=== PATIENT | female | born 1985 | race Asian ===

== ENCOUNTER 2016-10-22 05:44 | Day surgery (SDC) | payer OTHER ==
[2016-10-22] MEDS ORDERED: LIDOCAINE 1% 5 ML SDV ONE (06:19)
[2016-10-22] MEDS ORDERED: LIDOCAINE 1% 5 ML SDV ID PRN (06:47)
[2016-10-22] MEDS ORDERED: LR 1,000 ML IV ONE ×2 (06:47→07:00)
[2016-10-22] MEDS ORDERED: ceFAZolin 2 GM/DEXTROSE 100 ML IV ONE (07:00)
[2016-10-22] MEDS ORDERED: MIDAZOLAM 2 MG/2 ML VIAL ONE (07:12)
[2016-10-22] MEDS ORDERED: PROPOFOL 200 MG/20 ML VIAL ONE ×2 (07:16)
[2016-10-22] MEDS ORDERED: fentaNYL 250 MCG/5 ML INJ ONE (07:16)
[2016-10-22] MEDS ORDERED: LIDOCAINE 2% 5 ML SDV ONE (07:18)
[2016-10-22] MEDS ORDERED: SKIN ADHESIVE (DERMABOND) 1 EACH TP ONE (07:19)
[2016-10-22] MEDS ORDERED: BUPIVACAINE/EPI 0.5% 30 ML SDV ONE (07:19)
[2016-10-22] MEDS ORDERED: VASOPRESSIN 20 UNIT/ML VIAL ONE (07:20)
[2016-10-22] MEDS ORDERED: ROCURONIUM 50 MG/5 ML VIAL ONE (07:20)
[2016-10-22] MEDS ORDERED: LIDOCAINE HCL 160 MG/4 ML LTA KIT TP ONE (07:22)
[2016-10-22] MEDS ORDERED: PHENYLEPHRINE HCL 100 MCG/ML SYR ONE (07:51)
[2016-10-22] MEDS ORDERED: DEXAMETHASONE 4 MG/ML VIAL ONE ×2 (09:25)
[2016-10-22] MEDS ORDERED: ONDANSETRON 4 MG/2 ML VIAL ONE (09:26)
[2016-10-22] MEDS ORDERED: NEOSTIGMINE METHYLSULFATE 5 MG/5 ML SYR ONE (09:34)
[2016-10-22] MEDS ORDERED: GLYCOPYRROLATE 0.2 MG/1 ML VIAL ONE (09:35)
--- NOTE | 2016-10-22 11:32 | GOP ---
[f rep st] OPERATIVE REPORT DATE OF OPERATION: 10/22/2016 SURGEON: Donavon Tipton MD LEARNING DESIGN SPECIALIST: Emily Granados CFA ANESTHESIA: General. PREOPERATIVE DIAGNOSIS: 1. Menorrhagia. 2. Dysmenorrhea. 3. Uterine fibroid. POSTOPERATIVE DIAGNOSIS: 1. Menorrhagia. 2. Dysmenorrhea. 3. Uterine fibroid. 4. Endometriosis. PROCEDURE PERFORMED: 1. Robotic myomectomy. 2. Robotic excision of endometriosis, posterior cul-de-sac, right ovarian fossa, left uterosacral li gament, an anterior cul-de-sac. 3. Right ureterolysis. 4. Right ovarian pexy. FINDINGS: SPECIMENS: Two uterine fibroids and multiple areas of peritoneum with endometriosis. ESTIMATED BLOOD LOSS: Less than 20 mL. DESCRIPTION OF PROCEDURE: The patient was taken the operating room, where she was identified. Gener al anesthesia was administered and found to be adequate. She was placed in the lithotomy position an d prepared and draped in normal sterile fashion. A Hulka tenaculum was placed in the uterus for bradley pulation. A Hopper catheter was then placed. A 1 cm infraumbilical incision was made with a scalpel. The Veress needle with a CO2 gas lung was ad vanced into the peritoneal cavity. The abdomen was then insufflated with carbon dioxide gas. The 12 mm trocar, followed by the laparoscope, were then inserted. The upper abdomen was unremarkable. Th ere was no evidence of endometriosis on the diaphragm. Two lateral ports were placed, one on the rig ht, one on the left, under direct visualization. The patient was then placed in Trendelenburg positi on and the da Richard robot docked on the left side. The instruments were then brought into the abdomi nal cavity under direct visualization. Upon examining the pelvis, the patient had a larger posterior fibroid and a smaller fundal fibroid. She had multiple areas of endometriosis, especially in the cul-de-sac, left uterosacral ligament, rig ht ovarian fossa including a deep peritoneal window, as well as the anterior cul-de-sac. Attention w as first addressed to the posterior cul-de-sac. The endometriosis was completely excised, including the perineum. The left uterosacral ligament endometriosis was then excised. I then dissected down i n the right ovarian fossa to remove the deep retroperitoneal endometriosis. This was directly adjace nt to the ureter. As a result, a right ureterolysis was required to safely excise the endometriosis. The peritoneum near the pelvic brim was incised. The ureter was gently dissected free. The dissec tion was carried caudally beyond where the ureter crossed underneath the right uterine artery. The u reter was medialized safely the entire course. Once this was accomplished, I was able to excise the peritoneum and endometriosis without injuring the ureter. Finally, the anterior cul-de-sac peritoneu m was excised. All specimens were then sent to Pathology for permanent section. Vasopressin was injected at the junction between the myometrium and the fibroid. The overlying seros a and muscularis was incised. The fibroid was gently dissected free. Fortunately, no involvement of the endometrial cavity was present. A smaller fundal fibroid was then excised in a similar fashion. The uterus was then closed in 3 layers using 2-0 V-Loc 90 suture with the final serosal layer close d in a baseball type stitch. The specimen was removed through the vagina by making a colpotomy incision. The colpotomy was closed with a running 2-0 Vicryl V-Loc suture. Interceed was then placed over the incision after hemostasi s was assured. A right ovarian pexy was performed to address her ovulatory pain from the endometrios is. The right ovary was sutured to the ipsilateral round ligament near the internal inguinal ring wi th 4-0 chromic suture. The robot was then undocked. The fascia was closed with 0 Vicryl, the skin w ith 4-0 Monocryl and surgical adhesive. Anesthesia was reversed and the patient taken the PACU awake , in stable condition. COMPLICATIONS: None. DISPOSITION: Patient stable to PACU. /[id number]/MODL
== END 2016-10-22 14:08 | disposition home or self-care (01) ==
LOC: FSGY 05:44
PROVIDERS: ATTEND Obstetrics & Gynecology
PROC: 0UBF8ZZ Excision of Cul-de-sac, Via Natural or Artificial Opening Endoscopic (ICD-10-PCS; principal; 2016-10-22 07:15)
PROC: 8E0W4CZ Robotic Assisted Procedure of Trunk Region, Percutaneous Endoscopic Approach (ICD-10-PCS; principal; 2016-10-22 07:15)
PROC: 0UB98ZZ Excision of Uterus, Via Natural or Artificial Opening Endoscopic (ICD-10-PCS; principal; 2016-10-22 07:15)
DX: D25.9 Leiomyoma of uterus, unspecified (principal); N92.0 Excessive and frequent menstruation with regular cycle; N80.3 Endometriosis of pelvic peritoneum
CPT/HCPCS: 58545; 58662; C1765; J0690; J1100; J2250; J2370; J2405; J2704; J2710; J3010